=== PATIENT | male | born 1960 | race Caucasian/White ===

== ENCOUNTER 2021-02-10 15:24 | Emergency (ER) | payer OTHER ==
[~2021-02-10] VITALS: Ht 182.9 cm; Wt 122.5 kg
[2021-02-10] MEDS ORDERED: CASIRIVIMAB/IMDEVIMAB 10 ML in SODIUM CHLORIDE 0.9% 100 ML IV ONE (15:30)
== END 2021-02-10 17:14 | disposition home or self-care (01) ==
LOC: ER 15:56
DX: U07.1 COVID-19 (principal); R05.9 Cough, unspecified; R11.0 Nausea; R19.7 Diarrhea, unspecified; R51.9 Headache, unspecified
CPT/HCPCS: 99283; J7050